=== PATIENT | male | born 1955 | race Caucasian/White ===

== ENCOUNTER 2016-03-30 08:40 | Day surgery (SDC) | payer BC, OTHER ==
--- NOTE | 2016-03-25 10:50 | HISTORY AND PHYSICAL E ---
History and Physical NAME: RODRI LEA : 1955 AGE: 60Y ADMITTED: 03/30/2016 ROOM: HISTORY OF PRESENT ILLNESS: Patient presented regarding colon exam. The patient did have colonoscopy in 2007. He did have sigmoid diverticulosis, sigmoid polyp. The polyp was benign sigmoid polyp. At this time, patient for colon screening. REVIEW OF SYSTEMS: CARDIAC: Mild hypertension. ENDOCRINE: Negative. GASTROINTESTINAL: Diverticulosis, colon screening. FAMILY HISTORY: Father . PAST MEDICAL HISTORY: Patient has cholesterol and hypertension. SOCIAL HISTORY: Patient does not smoke drinks rarely. PAST SURGICAL HISTORY: He did have surgery, prostate resection. History of polyps and diverticulosis. History of prostatectomy. PHYSICAL EXAMINATION: Blood pressure is 120/70, pulse 80, respirations 18, temp is 98. HEAD, EYES, EARS, NOSE, THROAT: Normal. NECK: Supple. LUNGS: Clear. ABDOMEN: Soft NEUROLOGIC: NEGATIVE. MEDICATIONS: 1. Aspirin. 2. Lipitor. 3. Sidenafil. 4. Vitamins. CONCLUSION: Colon screening, diverticulosis. PLAN: Colonoscopy. DICTATING PHYSICIAN: TAVO PYLE M.D. [id number] PHY#: [id number] ID: [id number] JOB#: [id number] ACCT: [id number] cc:TAVO PYLE M.D., SWETANG M.D. >
[~2016-03-30 08:40] MED LIST: EPINEPHRINE INJ 1 MG/10 ML DISP.SYRIN ONE; FLUMAZENIL INJ 0.5 MG/5 ML VIAL IV ONE; GLUCAGON,HUMAN RECOMB 1 MG INJ ONE; GLYCOPYRROLATE INJ 0.4 MG/2 ML VIAL ONE; LIDOCAINE 2% JELLY 30 ML TUBE ONE; NALOXONE HCL INJ/PF 0.4 MG/1 ML SDV ONE; ONDANSETRON HCL INJ/PF 4 MG/2 ML SDV ONE; PROMETHAZINE HCL INJ 25 MG/1 ML VIAL ONE
[2016-03-30] MEDS: MIDAZOLAM 2 MG/2 ML INJ ONE ×3 (09:01→09:09)
[2016-03-30] MEDS: FENTANYL CITRATE INJ/PF 100 MCG/2 ML AMPUL ONE ×3 (09:05→09:16)
[2016-03-30 10:29] VITALS: BP 103/61
[2016-03-30 10:33] LABS: ABSOLUTE LYMPHOCYTES (AUTO) 1.2 10^3/uL (0.5-4.7); ABSOLUTE MONOCYTES (AUTO) 0.6 10^3/uL (0.1-1.4); ABSOLUTE NEUT (AUTO) 6.9 10^3/uL (1.7-8.2); BASOPHILS % (AUTO) 0.5 % (0-2); EOSINOPHILS % (AUTO) 0.5 % (0-6); HEMATOCRIT 41.5 % (37.9-51.0); HEMOGLOBIN 13.3 g/dL (13.5-17.0); HGB HCT DIFFERENCE -1.6; MEAN CORPUSCULAR HEMOGLOBIN 29.7 pg (27.0-33.4); MEAN CORPUSCULAR HGB CONC 32.2 g/dL (32.0-36.0); MEAN CORPUSCULAR VOLUME 92 fl (80-97); RED BLOOD COUNT 4.49 10^6/uL (4.35-5.55); RED CELL DISTRIBUTION WIDTH 12.3 % (11.5-14.0); WHITE BLOOD COUNT 8.8 10^3/uL (4.0-10.5)
--- NOTE | 2016-03-30 15:18 | OPERATIVE REPORT E ---
Operative Report NAME: RODRI LEA : 1955 AGE: 60Y DATE OF SURGERY: 03/30/2016 ROOM: PREOPERATIVE DIAGNOSES: 1. COLON SCREENING. 2. HISTORY OF CA OF THE PROSTATE. POSTOPERATIVE DIAGNOSES: 1. SEVERE DIVERTICULOSIS, SIGMOID DESCENDING COLON. 2. NO POLYPS. OPERATION: Colonoscopy. SURGEON: TAVO PYLE M.D. ANESTHESIA: Versed 4, fentanyl 125. TISSUE REMOVED OR ALTERED: None. PROCEDURE: RECTAL EXAM: Normal. The prostate is not palpable. Patient did have CA of the prostate and underwent treatment. I do not feel the prostate. SIGMOID: Diverticulosis. DESCENDING COLON: Diverticulosis. TRANSVERSE COLON, ASCENDING COLON, CECUM: Normal. Scope withdrawn cecum, ascending, transverse, descending, sigmoid, all the way to the rectum. CONCLUSION: 1. NO POLYPS; NO MALIGNANCY. 2. SEVERE DIVERTICULOSIS, SIGMOID DESCENDING COLON. 3. HISTORY OF CA OF THE PROSTATE. DISCHARGE PLAN: 1. Soft low residual diet, 3 days. 2. Hold aspirin, nonsteroidal 3 days. 3. Baseline CBC. 4. Patient re-instructed about diet and diverticulosis. DICTATING PHYSICIAN: TAVO PYLE M.D. [id number] PHY#: [id number] ID: [id number] JOB#: [id number] ACCT: [id number] cc:TAVO PYLE M.D. >
--- NOTE | 2016-03-30 15:21 | DISCHARGE SUMMARY E ---
Discharge Summary NAME: RODRI LEA : 1955 AGE: 60Y ADMITTED: 03/30/2016 DISCHARGED: FINAL DIAGNOSES: 1. COLON EXAM SHOWING NO POLYPS. 2. SEVERE DIVERTICULOSIS, SIGMOID DESCENDING COLON. HISTORY AND HOSPITAL COURSE: This 60-year-old male with history of prostate cancer, , hypertension underwent colon screening. Shows severe diverticulosis, sigmoid descending colon. DISCHARGE PLAN: 1. Baseline CBC. 2. Patient to be re-instructed about diet. 3. Consider followup colonoscopy after 10 years. DICTATING PHYSICIAN: TAVO PYLE M.D. [id number] PHY#: [id number] ID: [id number] JOB#: [id number] ACCT: [id number] cc:TAVO PYLE M.D. >
== END 2016-03-30 10:30 | disposition home or self-care (01) ==
LOC: END 08:40
PROVIDERS: ATTEND Specialist
PROC: 0DJD8ZZ Inspection of Lower Intestinal Tract, Via Natural or Artificial Opening Endoscopic (ICD-10-PCS; principal; 2016-03-30 09:00)
DX: Z12.11 Encounter for screening for malignant neoplasm of colon (principal); K57.30 Diverticulosis of large intestine without perforation or abscess without bleeding; I10 Essential (primary) hypertension; E78.00 Pure hypercholesterolemia, unspecified; Z79.82 Long term (current) use of aspirin; Z79.899 Other long term (current) drug therapy; Z85.46 Personal history of malignant neoplasm of prostate
CPT/HCPCS: 45378; 36415; 85025; J2250; J3010; J1610; J2405; J0171; J2310; J2550; J3490

== ENCOUNTER → 2016-07-30 | Outpatient (CLI) | payer BC, OTHER ==
--- NOTE | 2016-07-31 17:51 | RADIOLOGY REPORT (SQ) ---
EXAM DESCRIPTION: MRI RT UPPER JOINT WITHOUT COMPLETED DATE/TIME: 07/30/2016 8:44 pm REASON FOR STUDY: PAIN IN RIGHT SHOULDER M25.511 PAIN IN RIGHT SHOULDER COMPARISON: None. TECHNIQUE: Right shoulder images acquired and stored on PACS. Multiplanar imaging to include fat sen sitive sequences such as T1, water sensitive sequences such as FST2/STIR, cartilage sensitive sequenc es such as FSPD/gradient-echo sequences. LIMITATIONS: None. FINDINGS: BONE MARROW AND CORTEX: No marrow signal abnormality worrisome for occult fracture or aggr essive marrow replacement process JOINT OR BURSAL EFFUSION: Physiologic glenohumeral joint space fluid with moderate extending in subco racoid recess. Trace fluid subacromial/subdeltoid bursa GLENO-HUMERAL ARTICULATION: Advanced glenohumeral osteoarthritis is present with a [id number] appea ton, and glenoid subcortical cysts. Bulky bony spurring along the inferior aspect of the articular surface right humeral head. ACROMION AND AC JOINT: Type 2 No down-sloping or distal spur. Sub-acromial space maintained. Mild significant AC joint arthropathy. ROTATOR CUFF AND INTERVAL: Anterior half of the supraspinatus tendon is thin and increased signal fro m tendinopathy and partial thickness undersurface tear, best shown on sagittal images 5-8 and coronal images 10-13. No rotator interval tear. No rotator interval thickening to suggest adhesive capsulitis. LABRUM AND BICEPS LABRAL COMPLEX: Intra-articular long head biceps tendon is high signal from tendi nopathy on coronal image 11 and sagittal images 8-11. Glenoid labrum is diffusely small and fragment ed. No paralabral cysts. No thickening of IGHL to suggest adhesive capsulitis. PERIARTICULAR AND ADJACENT SOFT TISSUES: No masses or abnormal nodes. OTHER: No other significant finding. IMPRESSION: Diffuse degenerative changes as above TECHNICAL DOCUMENTATION: JOB ID: [id number] [employer]- All Rights Reserved
== END ==
LOC: RAD 18:26
PROVIDERS: ATTEND Physician Assistant
DX: M25.511 Pain in right shoulder (principal)

== ENCOUNTER → 2018-02-24 | Outpatient (CLI) | payer OTHER ==
--- NOTE | 2018-02-24 12:04 | RADIOLOGY REPORT (SQ) ---
EXAM DESCRIPTION: MRI LUMBAR SPINE WITHOUT COMPLETED DATE/TIME: 02/24/2018 11:34 am REASON FOR STUDY: M54.5 LOW BACK PAIN M54.5 LOW BACK PAIN COMPARISON: None. TECHNIQUE: Sagittal and Axial imaging includes T1, T2, STIR and gradient echo sequences. Coronal T2/ HASTE imaging. LIMITATIONS: None. FINDINGS: VISUALIZED UPPER ABDOMEN: Limited evaluation. No acute or suspicious findings suggested. SEGMENTATION: No transitional anatomy. The lowest well-developed disc space is labeled L5-S1. ALIGNMENT: Anatomic. VERTEBRAE: Intact. BONE MARROW: Normal. No marrow replacement or reactive changes. DISC SIGNAL: Diffuse decreased T2 weighted intervertebral disc signal. Disc space loss of height at L4-5 and L5-S1 POSTERIOR ELEMENTS: Generally intact. No pars defect evident. HARDWARE: None in the spine. CORD AND CONUS: Normal in size and signal intensity. Conus at the T12-L1 level. SOFT TISSUES: No aortic aneurysm seen. No bulky retroperitoneal adenopathy or mass. No paraspinal mas s or fluid. T11-12: At the upper edge of the field of view. Bulky bilateral facet hypertrophy is present with m ild bilateral foraminal narrowing. No central stenosis. T12-L1: No central or foraminal encroachment L1-L2: No central or foraminal encroachment. Mild bilateral facet hypertrophy. L2-L3: No central or right foraminal narrowing. Mild left foraminal stenosis. Mild posterior disc b ulging and mild bilateral facet hypertrophy is present left greater than right. L3-L4: Broad diffuse posterior disc bulging is present with moderate bilateral facet and ligament hyp ertrophy. Borderline central canal narrowing. Mild bilateral inferior foraminal narrowing without e xiting L3 nerve root impingement. L4-L5: Broad diffuse posterior disc bulging, moderate bilateral facet and ligament hypertrophy. Bord elvia central canal narrowing. Mild bilateral inferior foraminal stenosis without exiting L4 nerve root impingement L5-S1: Mild posterior disc bulging, moderate bilateral facet and ligament hypertrophy. No central st enosis. High-grade bilateral foraminal narrowing with partial effacement of fat around the exiting L 5 nerve roots bilaterally SACRUM: Visualized upper sacrum intact. OTHER: No other significant findings. IMPRESSION: Multilevel degenerative changes as above TECHNICAL DOCUMENTATION: JOB ID: [id number]- All Rights Reserved Reading location - IP/workstation name: [email or web address]
== END ==
LOC: RAD 11:23
PROVIDERS: ATTEND Family Medicine
DX: M54.5 Low back pain (principal)
CPT/HCPCS: 72148